=== PATIENT | male | born 1965 ===

== ENCOUNTER 2018-10-08 10:31 | Outpatient (CLI) | payer BC ==
--- NOTE | 2018-10-08 10:46 | RAD ---
FEXAM:Right foot 3 views HISTORY: Foot pain and swelling. Trauma approximately 2 weeks ago. COMPARISON: None FINDINGS:There is a prominent spur at the Achilles tendon insertion. There are no signs of fracture o r dislocation. No acute bony findings. IMPRESSION:No evidence of fracture.
== END 2018-10-08 10:32 | disposition home or self-care (01) ==
LOC: SCSRAD 10:31
PROVIDERS: ATTEND Internal Medicine
DX: M79.671 Pain in right foot (principal)